=== PATIENT | male | born 1970 | race Hispanic/Latino ===

== ENCOUNTER 2017-01-19 07:13 | Emergency (ER) | payer MEDICAID, OTHER ==
[2017-01-19 07:23] VITALS: BMI 29.8
[2017-01-19 07:27] VITALS: TEMP 97.9
[2017-01-19] MEDS ORDERED: Naproxen 550 mg Tab PO STA (07:49)
--- NOTE | 2017-01-19 08:03 | C.PDOC ---
History Of Present Illness 46 yr old male presents to the with complaints of right shoulder pain for the past 1 week. States the pain is worsened with movement and when he lifts his arm. Patient reports an old clavicle fracture in the same area back in 2003. Patient denies new injury, trauma, chest pain, SOB, back pain, neck pain, weakness or numbness. Time Seen by Provider: 01/19/17 07:29 Chief Complaint (Nursing): Upper Extremity Problem/Injury History Per: Patient History/Exam Limitations: no limitations Onset/Duration Of Symptoms: Days (1 week ) Current Symptoms Are (Timing): Still Present Past Medical History Reviewed: Historical Data, Nursing Documentation, Vital Signs Vital Signs: Last Vital Signs Temp 97.9 F 01/19/17 07:22 Pulse 85 01/19/17 09:03 Resp 18 01/19/17 09:03 BP 120/79 01/19/17 09:03 Pulse Ox 99 01/19/17 09:03 - Medical History PMH: HTN, Sleep Apnea (on Bipap) - [facility] Procedures LAPAROSCOPIC REPAIR UMBILICAL HERNIA W GRAFT OR PROSTHESIS (07/13/13) Family History: States: No Known Family Hx - Social History Hx Alcohol Use: No Hx Substance Use: No - Immunization History Hx Tetanus Toxoid Vaccination: Yes Hx Influenza Vaccination: Yes Hx Pneumococcal Vaccination: No Review Of Systems Except As Marked, All Systems Reviewed And Found Negative. Cardiovascular: Negative for: Chest Pain Respiratory: Negative for: Shortness of Breath Musculoskeletal: Positive for: Shoulder Pain (Right shoulder pain ). Negative for: Neck Pain, Back Pain Neurological: Negative for: Weakness, Numbness Physical Exam - Physical Exam Appears: Non-toxic, No Acute Distress Skin: Warm, Dry, No Rash Head: Atraumatic, Normacephalic Eye(s): bilateral: Normal Inspection, PERRL, EOMI Oral Mucosa: Moist Neck: Normal, Normal ROM, No Paracervical Tenderness, Supple Chest: Symmetrical, No Tenderness Cardiovascular: Rhythm Regular, No Murmur Respiratory: Normal Breath Sounds, No Rales, No Rhonchi, No Wheezing Back: Normal Inspection, No CVA Tenderness Extremity: Tenderness (Right Shoulder - Tenderness to the right anterior shoulder. ), Capillary Refill (<2), No Deformity, No Swelling, Other ((+) Right Shoulder - Pain with external rotation of the shoulder. Normal arm and elbow. ) Pulses: Left Radial: Normal, Right Radial: Normal Neurological/Psych: Oriented x3, Normal Speech, Normal Motor ED Course And Treatment O2 Sat by Pulse Oximetry: 100 (RA) Pulse Ox Interpretation: Normal - Other Rad X-Ray - Right Shoulder X-Ray: Viewed By Me, Read By Radiologist Interpretation: Negative for fractures. No dislocations. Old healed clavical, otherwise normal XRay. Medical Decision Making Medical Decision Making: PLAN: * X-Ray - Right Shoulder * Naproxen PO * Flexeril PO * On re-exam, the patient reports improvement of symptoms. Ambulatory in the ED with steady gait, normal speech. Follow up with the medical doctor/medical clinic within 1-2 days. Return if worsened. Disposition - Disposition Referrals: Rhoda Johns MD [Staff Provider] - Disposition: HOME/ ROUTINE Disposition Time: 08:50 Condition: GOOD Additional Instructions: Follow up with the medical doctor within 1-2 days. Return if worsened, Prescriptions: Cyclobenzaprine [Flexeril] 5 mg PO TID #21 tab Naproxen [Naprosyn] 500 mg PO BID #20 tab predniSONE [Prednisone] 20 mg PO BID #10 tab Instructions: Tendinitis (ED) - Clinical Impression Clinical Impression: Shoulder tendonitis - PA / SENIOR BIOINFORMAT[employer] SPECIALIST / Resident Statement MD/DO has reviewed & agrees with the documentation as recorded. - Scribe Statement The provider has reviewed the documentation as recorded by the Scribe Whitney Torres All medical record entries made by the Scribe were at my direction and personally dictated by me. I have reviewed the chart and agree that the record accurately reflects my personal performance of the history, physical exam, medical decision making, and the department course for this patient. I have also personally directed, reviewed, and agree with the discharge instructions and disposition.
[2017-01-19] MEDS ORDERED: Naproxen 550 mg Tab PO ONE (08:07)
[2017-01-19 09:04] VITALS: BP 120/79; PULSE 85; RESP 18
--- NOTE | 2017-01-19 09:28 | RAD ---
PROCEDURE: Radiographs of the Right Shoulder HISTORY: shoulder pain, decreased ROM COMPARISON: No prior. FINDINGS: BONES: Normal. No fracture. JOINTS: Minor degenerative changes right acromioclavicular joint. . SOFT TISSUES: There is a small calcification seen within the soft tissues subjacent to the mid - distal 1/3 of the clavicle which may represent calcification along the coracoclavicular ligament. OTHER FINDINGS: None. IMPRESSION: No acute fractures. Minor DJD right AC joint. Probable calcification along the distribution of the cortical clavicular ligament
[2017-01-19 12:56] VITALS: O2SAT 100
== END 2017-01-19 09:04 | disposition home or self-care (01) ==
LOC: C.ER 07:13
DX: M75.91 Shoulder lesion, unspecified, right shoulder (principal)